=== PATIENT | male | born 1985 | race Caucasian/White ===

== ENCOUNTER 2021-01-06 18:56 | Emergency (ER) | payer OTHER ==
--- NOTE | 2021-01-06 19:35 | EDM.PDOC ---
ED HPI GENERAL MEDICAL PROBLEM - General Chief Complaint: Lower Extremity Injury/Pain Stated Complaint: ROLLED ANKLE Time Seen by Provider: 01/06/21 19:25 Source of Information: Reports: Patient History Limitations: Reports: No Limitations - History of Present Illness INITIAL COMMENTS - FREE TEXT/NARRATIVE: This 35 yo male patient reports to the ED due to right ankle pain and swelling. The patient reports he was installing a new garage door in his home when he stepped down and rolled his ankle. The patient reports after the incident, he continued to work until the door was installed. When he got into the house, the patient reports his saw the swelling and encouraged him to come to the ED for x-rays. Onset: Today Duration: Hour(s):, Constant Location: Reports: Lower Extremity, Right Quality: Reports: Ache, Throbbing Severity: Moderate Improves with: Reports: Rest Worsens with: Reports: Movement Context: Reports: Activity Associated Symptoms: Reports: No Other Symptoms Right Ankle Pain Score (Numeric/FACES): 8 - Related Data Allergies Allergy/AdvReac Type Severity Reaction Status Date / Time erythromycin base Allergy Mild Vomiting Verified 01/06/21 19:08 [From Erythrocin] Home Meds: Home Meds . [No Known Home Meds] 01/06/21 [History] Past Medical History - Past Health History Medical/Surgical History: Denies Medical/Surgical History - Infectious Disease History Other Infectious Disease History: tested positive for: COVID-25 august 2020. Social & Family History - Tobacco Use Tobacco Use Status *Q: Never Tobacco User Second Hand Smoke Exposure: No - Caffeine Use Caffeine Use: Reports: Coffee, Soda - Recreational Drug Use Recreational Drug Use: No Review of Systems - Review of Systems Review Of Systems: Comprehensive ROS is negative, except as noted in HPI. ED EXAM, GENERAL - Physical Exam Exam: See Below Exam Limited By: No Limitations General Appearance: Alert, WD/WN, Mild Distress Eye Exam: Bilateral Eye: EOMI, Normal Inspection, PERRL Ears: Normal External Exam, Normal Canal, Hearing Grossly Normal, Normal TMs Nose: Normal Inspection, Normal Mucosa, No Blood Throat/Mouth: Normal Inspection, Normal Lips, Normal Teeth, Normal Gums, Normal Oropharynx, Normal Voice, No Airway Compromise Head: Atraumatic, Normocephalic Neck: Normal Inspection, Supple, Non-Tender, Full Range of Motion Respiratory/Chest: No Respiratory Distress, Lungs Clear, Normal Breath Sounds, No Accessory Muscle Use, Chest Non-Tender Cardiovascular: Normal Peripheral Pulses, Regular Rate, Rhythm, No Edema, No Gallop, No JVD, No Murmur, No Rub GI/Abdominal: Normal Bowel Sounds, Soft, Non-Tender, No Organomegaly, No Distention, No Abnormal Bruit, No Mass (Male) Exam: Deferred Rectal (Males) Exam: Deferred Back Exam: Normal Inspection, Full Range of Motion, NT Extremities: Leg Pain (right ankle pain), Limited Range of Motion, Other (swel ling to lateral ankle) Neurological: Alert, Oriented, CN II-XII Intact, Normal Cognition, Normal Gait, Normal Reflexes, No Motor/Sensory Deficits Psychiatric: Normal Affect Skin Exam: Warm, Dry, Intact, Normal Color, No Rash Lymphatic: No Adenopathy Course - Vital Signs Last Recorded V/S: Last Vital Signs Temp 36.5 C 01/06/21 19:11 Pulse 88 01/06/21 19:11 Resp 18 01/06/21 19:11 BP 137/89 01/06/21 19:11 Pulse Ox 99 01/06/21 19:11 - Orders/Labs/Meds Orders: Active Orders 24 hr Category Date Time Status Ankle Min 3V Rt [CR] Urgent Exams 01/06/21 19:13 Ordered - Radiology Interpretation Free Text/Narrative:: [facility] Final Radiology Report Call: [phone] assistance Online chat: [email or web address] Name: ELIZA MCDANIEL Age: 35Years M Date: 01/06/2021 SSN: -- : [id number] Study: CR ANKLE MIN 3V RT Requesting Physician: Alfredo Vasquez Images: 3 Addl Studies: Provided Clinical History: Right ankle pain ("rolled ankle") Contrast: Contrast Medium: Contrast Amount: Contrast Method: CONFIDENTIALITY STATEMENT This report is intended only for use by the referring physician, and only in accordance with law. If you received this in error, call [phone]. Page 1 of 1 PROCEDURE INFORMATION: Exam: XR Right Ankle Exam date and time: 01/06/2021 7:34 PM Age: 35 years old Clinical indication: Other: Pain; Additional info: Right ankle pain ("rolled ankle") TECHNIQUE: Imaging protocol: XR Right ankle. Views: 3 or more views. COMPARISON: No relevant prior studies available. FINDINGS: Bones/joints: Multiple views of the right ankle demonstrate a small ossified fragment caudal to the tip of the distal fibula. This is compatible with an age-indeterminate fracture which could be acute. No additional fractures are identified. The ankle mortise is intact. Subtalar darlyn ints are in anatomic alignment. Soft tissues: Moderate lateral soft tissue swelling is present. IMPRESSION: Age indeterminate but potentially acute fracture involving the tip of the distal fibula. Given the moderate lateral soft tissue swelling, this is likely acute. Thank you for allowing us to participate in the care of your patient. Dictated and Authenticated by: René Shields MD 01/06/2021 8:17 PM Central Time ([place] & [place]) Departure - Departure Time of Disposition: 20:24 Disposition: Home, Self-Care 01 Condition: Fair Clinical Impression: Fracture of fibula, distal, right, closed Qualifiers: Encounter type: initial encounter Fracture morphology: unspecified fracture morphology Qualified Code(s): S82.831A - Other fracture of upper and lower end of right fibula, initial encounter for closed fracture Moderate right ankle sprain Qualifiers: Encounter type: initial encounter Qualified Code(s): S93.401A - Sprain of unspecified ligament of right ankle, initial encounter - Discharge Information *PRESCRIPTION DRUG MONITORING PROGRAM REVIEWED*: Not Applicable *COPY OF PRESCRIPTION DRUG MONITORING REPORT IN PATIENT RAY: Not Applicable Instructions: Nondisplaced Fibular Ankle Fracture Treated With Immobilization, Adult, Ankle Sprain, [id number] Forms: ED Department Discharge Care Plan Goals: The patient was advised of the examination and x-ray results during the visit. The patient was placed in an air splint for his right ankle. The patient was advised to rest, ice and elevate the extremity over the next 24 hours. The patient may take Tylenol or ibuprofen for temporary symptom relief. If the patient has any additional symptoms or concerns, the patient should either visit his primary care facility or return to the emergency department. Sepsis Event Note (ED) - Evaluation Sepsis Screening Result: No Definite Risk - Focused Exam Vital Signs: Vital Signs Temp Pulse Resp BP Pulse Ox 01/06/21 19:11 36.5 C 88 18 137/89 99 - My Orders Last 24 Hours: My Active Orders 01/06/21 19:13 Ankle Min 3V Rt [CR] Urgent - Assessment/Plan Last 24 Hours: My Active Orders 01/06/21 19:13 Ankle Min 3V Rt [CR] Urgent
--- NOTE | 2021-01-06 20:17 | CR ---
PROCEDURE INFORMATION: Exam: XR Right Ankle Exam date and time: 01/06/2021 7:34 PM Age: 35 years old Clinical indication: Other: Pain; Additional info: Right ankle pain ("rolled ankle") TECHNIQUE: Imaging protocol: XR Right ankle. Views: 3 or more views. COMPARISON: No relevant prior studies available. FINDINGS: Bones/joints: Multiple views of the right ankle demonstrate a small ossified fragment caudal to the tip of the distal fibula. This is compatible with an age-indeterminate fracture which could be acute. No additional fractures are identified. The ankle mortise is intact. Subtalar joints are in anatomic alignment. Soft tissues: Moderate lateral soft tissue swelling is present. IMPRESSION: Age indeterminate but potentially acute fracture involving the tip of the distal fibula. Given the moderate lateral soft tissue swelling, this is likely acute.
== END 2021-01-06 20:45 | disposition home or self-care (01) ==
LOC: DL.ED 18:56
DX: S82.831A Other fracture of upper and lower end of right fibula, initial encounter for closed fracture (principal); Z88.1 Allergy status to other antibiotic agents; X50.9XXA Other and unspecified overexertion or strenuous movements or postures, initial encounter; Y92.009 Unspecified place in unspecified non-institutional (private) residence as the place of occurrence of the external cause
CPT/HCPCS: 73610-RT; 99283; 99284